=== PATIENT | male | born 1990 | race Hispanic/Latino ===

== ENCOUNTER 2021-10-25 18:09 | Emergency (ER) | payer SELFPAY ==
[~2021-10-25] VITALS: Ht 175.3 cm; Wt 127.7 kg
[2021-10-25] MEDS ORDERED: FEROSUL325 MG PO (18:44)
== END 2021-10-25 21:00 | disposition home or self-care (01) ==
LOC: FSED 18:14
DX: K62.5 Hemorrhage of anus and rectum (principal); R11.0 Nausea; E66.9 Obesity, unspecified
CPT/HCPCS: 74176; 80053; 85025; 99283

== ENCOUNTER 2022-08-14 15:48 | Emergency (ER) | payer SELFPAY ==
[~2022-08-14] VITALS: Ht 175.3 cm; Wt 115.8 kg
[~2022-08-14 15:48] MED LIST: FEROSUL325 MG PO
[2022-08-14] MEDS ORDERED: NAPROSYN500 MG PO (16:45)
== END 2022-08-14 17:01 | disposition home or self-care (01) ==
LOC: FSED 15:52
DX: M25.561 Pain in right knee (principal); X50.1XXA Overexertion from prolonged static or awkward postures, initial encounter; E66.01 Morbid (severe) obesity due to excess calories; Y92.89 Other specified places as the place of occurrence of the external cause
CPT/HCPCS: 99283

== ENCOUNTER 2024-08-26 06:26 | Emergency (ER) | payer SELFPAY ==
[~2024-08-26] VITALS: Ht 175.3 cm; Wt 113.6 kg
[~2024-08-26 06:26] MED LIST changes: +COLACE100 M1 PO; +FAMOTIDINE20 MG PO; +FIBER TABS625 MG PO; +MAALOX MAXIMUM355 ML PO; +NAPROSYN500 MG PO; +ONDANSETRON ODT4 MG PO
[2024-08-26] MEDS: FAMOTIDINE 20 MG/2 ML VIAL IV STA (07:55)
[2024-08-26] MEDS: SODIUM CHLORIDE 0.9% 1000ML 1,000 ML IV ONE (07:55)
[2024-08-26] MEDS: ONDANSETRON HCL INJ 2MG/ML 2ML 2 MG/ML VIAL IV STA (07:55)
[2024-08-26] MEDS ORDERED: PEPCID20 MG PO (08:03)
[2024-08-26] MEDS ORDERED: ONDANSETRON ODT4 MG PO (08:03)
[2024-08-26] MEDS ORDERED: METFORMIN HCL850 MG PO (08:05)
[2024-08-26 08:30] VITALS: PULSE 75; RESP 18; TEMP 98.2; O2SAT 98
== END 2024-08-26 08:30 | disposition home or self-care (01) ==
LOC: FSED 06:44
DX: R10.32 Left lower quadrant pain (principal); R11.2 Nausea with vomiting, unspecified; R19.7 Diarrhea, unspecified; R73.9 Hyperglycemia, unspecified; K76.0 Fatty (change of) liver, not elsewhere classified; E66.9 Obesity, unspecified
CPT/HCPCS: 74176; 80048; 80076; 81003; 83036; 85025; 96374; 96375; 99284; J1308; J2405; J7030